=== PATIENT | male | born 1995 | race Caucasian/White ===

== ENCOUNTER 2017-02-03 12:09 | Emergency (ER) | payer OTHER ==
[~2017-02-03] VITALS: Ht 180.3 cm; Wt 72.7 kg
[~2017-02-03 12:09] MED LIST: ERGO500050 PO; RISP2TAB21 PO; ZONI100C6 PO
[2017-02-03 12:16] VITALS: BP 101/51; PULSE 102; RESP 14; O2SAT 96
--- NOTE | 2017-02-03 12:21 | ED.REPORT ---
HPI-Seizure Date of Service February 03, 2017 ED Provider: Johnathan Wing DO Pt is a 21 year old male with a hx of seizure disorder and polysubstance abuse presenting to the ED via EMS after 2 seizures today, the first one at 0830. The pt's mother reports that he was gurgling and having trouble breathing, then after the seizure was unresponsive so she called medics. His mother reports that she does not think that he has taken his seizure medication for the past few days, and that he does not "take the best care of himself". In the ambulance , the pt jumped up and tried to leave the ambulance while it was en route so he was given Ativan per medics. Nursing Notes Stated Complaint: SEIZURES Chief Complaint: Seizure Nursing Notes Reviewed: Yes Allergies: Coded Allergies: levetiracetam (Verified Allergy, Severe, Agitation, 03/28/16) She will becomes angry and suicidal Scheduled Ergocalciferol (Vitamin D2) (Drisdol) 50,000 Unit Capsule 50,000 UNIT PO Q7D Risperidone (Risperdal) 2 Mg Tablet 2 MG PO HS Zonisamide (Zonisamide) 100 Mg Capsule 100 MG PO BID Zonisamide (Zonisamide) 100 Mg Capsule 200 MG PO BID General Time Seen by Provider: 12:21 Chief Complaint Chief Complaint: Seizure, focal Hx Obtained From: Patient, Other family... (Mother), EMS Arrived By: Ambulance Onset Occurred: 1 - 4 hours ago Context of Onset: Ran out of medication Symptom Duration: Since onset Progression Since Onset: Constant Severity: Current: No pain currently Severity: Maximum: No pain Recent Healthcare: No recent doctor visit, No recent hospitalization Similar Sx Previous: Yes Past Medical History Past Medical History Notes: Neurologist: Dr. Jamila Gonzáles Past Medical History Seizure disorder, currently on Keppra. RX for Zonisamide filled 05/17. Shoulder dislocation Kidney failure, RABDO Past Surgical History denies Smoking History Current Every Day Smoker Social History Polysubstance abuse Alcohol Use: "Social" Drug Use: THC Occupation lives with gitlfriend Ambulatory Status Independent Review of Systems Unable to Obtain ROS Patient condition Musculoskeletal: Reports: Joint pain (Left shoulder) Neurologic: Reports: Confusion, Seizure Physical Exam Initial Vital Signs Vital Signs (First) Date Time Temp Pulse Resp B/P Pulse Ox O2 Delivery O2 Flow Rate FiO2 02/03/17 12:16 36.7 102 14 101/51 96 Room Air Initial VS: Reviewed Head / Eyes: Atraumatic, Normocephalic, PERRL ENT: Mucous membranes moist, Conjunctiva normal, No scleral icterus Abdomen / GI: Soft, Non-tender, No guarding, No rebound, No distention Extremities: Vascular intact, Neuro intact, No swelling, No tenderness Skin: Warm, Dry, No cyanosis Psychiatric: Mood/affect normal, Behavior normal, Normal thought content General/Constitutional: Awake, No acute distress Somnolent but arousable. Neck: Supple, No meningismus, Full range of motion, No swelling, Non-tender Respiratory / Chest: Breath sounds NL, Breath sounds = bilat, No respiratory distress, No rales, No rhonchi, No wheezing Cardiovascular: Heart rate NL, Regular rhythm, Heart sounds NL, Peripheral circulation NL Neurologic: Oriented X3, Speech NL, No motor deficits, No sensory deficits, CN II - XII intact, Reflexes equal bilat, Cerebellar NL Mental Status: Positive: Confused Inappropriate responses to questions. Interpretation & Diagnostics Lab Results Interpretation Result Diagram: 02/03/17 1240 02/03/17 1253 Test 02/03/17 12:40 02/03/17 12:53 White Blood Count 13.7th/mm3 (3.8-10.1) Red Blood Count 4.91mil/mm3 (4.40-5.80) Hemoglobin 15.4g/dL (13.8-17.2) Hematocrit 45.4% (41.0-50.0) Mean Corpuscular Volume 92.5fL (81-100) Mean Corpuscular Hemoglobin 31.4pg (27.0-35.0) Mean Corpuscular Hemoglobin Concent 33.9% (32.0-37.0) Red Cell Distribution Width 13.2% (12.3-15.4) Platelet Count 282bil/L (150-400) Neutrophils (%) (Auto) 73.7% (40-74) Lymphocytes (%) (Auto) 16.7% (14-46) Monocytes (%) (Auto) 7.1% (4-12) Eosinophils (%) (Auto) 1.7% (0-5) Basophils (%) (Auto) 0.4% (0-3) Sodium Level 136mEq/L (134-144) Potassium Level 3.7mEq/L (3.5-5.2) Chloride Level 101mEq/L (97-108) Carbon Dioxide Level 21mmol/L (18-29) Blood Urea Nitrogen 11mg/dL (6-20) Creatinine 0.94mg/dL (0.76-1.27) Estimat Glomerular Filtration Rate 107mL/min (>59) Glucose Level 130mg/dL (60-99) Calcium Level 9.6mg/dL (8.5-10.1) Total Bilirubin 0.5mg/dL (0.0-1.2) Aspartate Amino Transf (AST/SGOT) 20U/L (0-50) Alanine Aminotransferase (ALT/SGPT) 14U/L (0-44) Alkaline Phosphatase 79U/L (25-150) Total Protein 7.3g/dL (6.4-8.4) Albumin 4.5g/dL (3.4-5.0) Alcohols < 10mg/dL (0-10) Procedures Reduction Dislocated Shoulder Reduced anterior shoulder dislocation bedside. Diagnosed on examination. Time: 12:55 Procedure Performed by: ED physician Consent / Setup: Consent from patient Which Shoulder and Technique: Left shoulder Neurovascular: Intact pre-procedure, Intact post-procedure Post-Procedure / Complications: Reduced per examination, Procedure successful, Condition improved, Tolerated procedure well, Patient stable Re-Eval/Medical Decision Med Decision/Clinical Course Recurrent seizures today due to medication noncompliance, incidentally while in the ER he spontaneously dislocated his left shoulder which is identified clinically and is reducible the bedside without anesthesia or significant imaging. Patient's neurologically intact after this. He was given a dose of his zonisamide. He has remained seizure-free, his labs are unremarkable. He is return to normal functional baseline. His meds have been refilled and strict return and follow-up precautions are given. Re-Evaluation/Progress #1: Time of Eval: 12:32 Patient Status: Condition improved Re-Evaluation/Progress Note: Discussed additional past medical history and performed physical exam. His mother reports that his post-ictal behavior varies, but that right now he is acting a little more confused than usual. Re-Evaluation/Progress #2: Time of Eval: 12:53 Re-Evaluation/Progress Note: Pt now complains of left shoulder pain. Reduced shoulder. Re-Evaluation/Progress #3: Time of Eval: 13:40 Patient Status: Condition improved Re-Evaluation/Progress Note: Discussed lab results and medication dosage and plan for discharge. Pt understands and agrees. Pt now fully awake and responsive. Back at baseline. He states that he has not taken his seizure meds in 1 week. Counseled Regarding: Diagnosis, Lab results, Need for follow-up, When/why to return to ED Discharge & Departure Impression: Primary Impression: Breakthrough seizure Additional Impression: Shoulder dislocation, recurrent Laterality: left Qualified Code: M24.412 - Recurrent dislocation, left shoulder Disposition: Home Discharge Condition All VS Reviewed: Yes Condition: Improved Additional Instructions: Resume your seizure medication. Call your neurologist for follow-up. Return to ER as needed if worse. Referrals: Haseeb Chavez MD (PCP) Jamila Clifford MD Attestation Portions of this note were transcribed by Sharon Martin. I, Dr. Wing personally performed the history, physical exam and medical decision-making; I reviewed and confirmed the accuracy of the information in the transcribed note. Signed by: Jovany Guidry, 02/03/2017 at 1349. copies to: Jamila Clifford MD; Haseeb Chavez MD, Timothy S DO February 03, 2017 12:21 SHARON MARTIN February 03, 2017 12:27
[2017-02-03] MEDS ORDERED: 0.9% Sodium Chloride 1,000 ML IV ONE (12:36)
[2017-02-03 12:44] LABS: BASOPHILS % (AUTO) 0.4 % (0-3); EOSINOPHILS % (AUTO) 1.7 % (0-5); MONOCYTES % (AUTO) 7.1 % (4-12); Mean Corpuscular Hemoglobin 31.4 pg (27.0-35.0); Mean Corpuscular Volume 92.5 fL (81-100); NEUTROPHILS % (AUTO) 73.7 % (40-74); Platelet Count 282 bil/L (150-400)
[2017-02-03 13:17] VITALS: BP 124/68; PULSE 62; RESP 16; O2SAT 100
[2017-02-03] MEDS ORDERED: ZONI100C6 PO (13:44)
== END 2017-02-03 13:45 | disposition home or self-care (01) ==
LOC: EDUNIT# 12:09 → EDBD 12:09 → SED 12:09
DX: G40.909 Epilepsy, unspecified, not intractable, without status epilepticus (principal); M24.412 Recurrent dislocation, left shoulder; F19.20 Other psychoactive substance dependence, uncomplicated; M62.82 Rhabdomyolysis; F17.200 Nicotine dependence, unspecified, uncomplicated; Z88.8 Allergy status to other drugs, medicaments and biological substances
CPT/HCPCS: 23650; 36415; 80053; 85025; 99285; G0480

== ENCOUNTER 2017-02-20 20:06 | Emergency (ER) | payer OTHER ==
[~2017-02-20] VITALS: Ht 182.9 cm; Wt 72.0 kg
[2017-02-20 20:16] VITALS: BP 137/79; RESP 16; O2SAT 99
--- NOTE | 2017-02-20 23:25 | ED.REPORT ---
HPI-General Illness Date of Service February 20, 2017 ED Provider: Mauri Patterson MD Pt is a 21 y.o. male with a hx of seizure disorder and kidney failure secondary to rhabdomyolysis who presents to the ED from c/o left ear pain onset 3 days ago. Pt states that he "touched it when he shouldn't have" and has been "picking " at the area behind his left ear. Pt reports associated redness and jaw pain. He denies itching. Pt was seen at and they recommended he come into the ED for further imaging and abx. Nursing Notes Stated Complaint: INFECTION BEHIND EAR Chief Complaint: ENT & Mouth Nursing Notes Reviewed: Yes Allergies: Coded Allergies: levetiracetam (Verified Allergy, Severe, Agitation, 02/20/17) She will becomes angry and suicidal Scheduled Cephalexin (Keflex) 500 Mg Capsule 500 MG PO QID Clindamycin (Clindamycin) 300 Mg Capsule 300 MG PO QID Ergocalciferol (Vitamin D2) (Drisdol) 50,000 Unit Capsule 50,000 UNIT PO Q7D Risperidone (Risperdal) 2 Mg Tablet 2 MG PO HS Zonisamide (Zonisamide) 100 Mg Capsule 100 MG PO BID Zonisamide (Zonisamide) 100 Mg Capsule 200 MG PO BID General Time Seen by MD: 23:25 Chief Complaint Ear pain Hx Obtained From: Patient Arrived By: Walk-in Sudden in Onset?: Yes Onset Occurred: 3 days ago Location: : Ear left Quality: Painful Radiation: : Jaw Severity: Current: Moderate Similar Sx Previous: No Past Medical History Past Medical History Notes: Neurologist: Dr. Jamila Gonzáles Past Medical History Seizure disorder, currently on Keppra. RX for Zonisamide filled 05/17. Shoulder dislocation Kidney failure, Rhabdomyolysis Past Surgical History denies Smoking History Current Every Day Smoker Social History Polysubstance abuse Alcohol Use: "Social" Drug Use: THC Occupation lives with gitlfriend Ambulatory Status Independent Review of Systems Full Review of Systems Ears / Nose / Throat: Reports: Earache left (pain), Mouth pain (jaw) Skin: Reports Rash (behind left ear) Allergy / Immune: Denies: Itching Complete sys rev & neg: except as marked. Physical Exam Vital Signs Vital Signs Date Time Temp Pulse Resp B/P Pulse Ox O2 Delivery O2 Flow Rate FiO2 5/20/17 05:34 36.7 63 14 114/63 99 Room Air 02/21/17 00:25 36.9 80 18 118/64 99 Room Air 02/20/17 20:16 37.2 90 16 137/79 99 Room Air Initial VS: Reviewed Respiratory: Breath sounds normal, No respiratory distress Cardiovascular: Regular rate & rhythm, Intact distal pulses Abdomen / GI: No distention Extremities: Vascular intact, Neuro intact Skin: Warm, Dry, No cyanosis Neurologic: Alert, Oriented, Nonfocal Psychiatric: Mood/affect normal, Behavior normal, Normal thought content General/Constitutional: Awake, Alert, No acute distress, Well appearing, Well developed, Well hydrated, Well nourished, Not toxic appearing Head / Eyes: Atraumatic, Normocephalic, PERRL, EOMI ENT: Atraumatic, Airway patent, Mucous membranes moist Left Ear / Mastoid: Positive: Mastoid area red, Mastoid area tender Neck: Atraumatic, No adenopathy Interpretation & Diagnostics Lab Results Interpretation Result Diagram: 02/20/174 02/20/17 2354 Test 02/20/17 23:54 White Blood Count 14.5th/mm3 (3.8-10.1) Red Blood Count 4.81mil/mm3 (4.40-5.80) Hemoglobin 15.2g/dL (13.8-17.2) Hematocrit 43.8% (41.0-50.0) Mean Corpuscular Volume 91.1fL (81-100) Mean Corpuscular Hemoglobin 31.6pg (27.0-35.0) Mean Corpuscular Hemoglobin Concent 34.7% (32.0-37.0) Red Cell Distribution Width 13.4% (12.3-15.4) Platelet Count 281bil/L (150-400) Neutrophils (%) (Auto) 76.3% (40-74) Lymphocytes (%) (Auto) 15.5% (14-46) Monocytes (%) (Auto) 6.8% (4-12) Eosinophils (%) (Auto) 0.8% (0-5) Basophils (%) (Auto) 0.3% (0-3) Sodium Level 137mEq/L (134-144) Potassium Level 3.5mEq/L (3.5-5.2) Chloride Level 99mEq/L (97-108) Carbon Dioxide Level 21mmol/L (18-29) Blood Urea Nitrogen 17mg/dL (6-20) Creatinine 0.98mg/dL (0.76-1.27) Estimat Glomerular Filtration Rate 102mL/min (>59) Glucose Level 84mg/dL (60-99) Calcium Level 9.5mg/dL (8.5-10.1) Magnesium Level 2.0mg/dL (1.6-2.6) Total Bilirubin 0.5mg/dL (0.0-1.2) Aspartate Amino Transf (AST/SGOT) 18U/L (0-50) Alanine Aminotransferase (ALT/SGPT) 13U/L (0-44) Alkaline Phosphatase 98U/L (25-150) Troponin T 0.010ug/L (0.0-0.011) Total Protein 8.2g/dL (6.4-8.4) Albumin 4.9g/dL (3.4-5.0) Procalcitonin 0.04ng/mL (0.00-0.08) Hold Scott Top Tube Received (Received) CT Head Interpretation CT temporal bone Impression: Edema of the periauricular soft tissues of the left ear noted. No discrete loculated fluid collection. Otherwise, unremarkable CT study of the temporal bones. This report was transmitted to the emergency room at 02/21/2017 - 2:57:06 AM PDT. Interpretation / Wet Read by: Interpret - Radiologist Re-Eval/Medical Decision Med Decision/Clinical Course 21-year-old presents with worsening redness and swelling over the mastoid prominence of the left side, involving the back of the ear and causing some swelling and pain limiting his jaw motion. There is no drainable abscess there. CT was done to exclude osteomyelitis and mastoiditis, and this was negative. The infection appears to be confined to the soft tissue superficial to the bone. Initial plan was IV antibiotics but he was given Levaquin on the possibility that this was mastoiditis. Ultimately, Keflex and Clinda for the possibility of MRSA as well as routine skin bacteria was provided. He is to follow up with PCP. Prompt return if worse. Source of Hx: Old records Time of Eval: 04:42 Re-Evaluation/Progress Note: Pt rechecked. Discussed imaging results and plan for discharge, pt understands and agrees with plan. Counseled Regarding: Diagnosis, Lab results, Need for follow-up, When/why to return to ED Discharge & Departure Shift Change Sign-Out Response to Therapy: Improved Primary Impression: Otitis externa Additional Impression: Cellulitis Disposition: Home Discharge Condition All VS Reviewed: Yes Condition: Improved Additional Instructions: We do not find evidence of mastoiditis or bone infection underlying the infected area. Begin Keflex four times daily. Begin clindamycin four times daily. Follow-up with your doctor in the office this week. Return promptly if worsening despite treatment. Referrals: Haseeb Chavez MD (PCP) Scribe Attestation Portions of this note were transcribed by Kvng Alas. I, Dr. Patterson personally performed the history, physical exam and medical decision-making; I reviewed and confirmed the accuracy of the information in the transcribed note. Signed by: Jovany Meeks, 02/21/17 and 0500. copies to: Haseeb Chavez MD, Christopher W MD February 20, 2017 23:25 KVNG ALAS February 20, 2017 23:32 Benigno Flores February 21, 2017 03:03
[2017-02-20] MEDS ORDERED: 0.9% Sodium Chloride 1,000 ML IV ONE (23:31)
[2017-02-21] LABS: BASOPHILS % (AUTO) 0.3 % (0-3); EOSINOPHILS % (AUTO) 0.8 % (0-5); MONOCYTES % (AUTO) 6.8 % (4-12); Mean Corpuscular Hemoglobin 31.6 pg (27.0-35.0); Mean Corpuscular Volume 91.1 fL (81-100); NEUTROPHILS % (AUTO) 76.3 % (40-74); Platelet Count 281 bil/L (150-400)
[2017-02-21 00:22] LABS: TROPONIN T 0.01 ug/L (0.0-0.011)
[2017-02-21 00:25] VITALS: BP 118/64; PULSE 80; RESP 18; O2SAT 99
[2017-02-21] MEDS ORDERED: levoFLOXacin 750 mg Tablet PO ONE (03:15)
[2017-02-21] MEDS ORDERED: CEPH-512 PO (04:52)
[2017-02-21] MEDS ORDERED: CLIN-78 PO (04:52)
[2017-02-21 05:34] VITALS: BP 114/63; PULSE 63; RESP 14; O2SAT 99
--- NOTE | 2017-02-21 08:53 | DRSVH ---
PROCEDURE: CT INTERNAL AUDITORY CANAL WITHOUT CONTRAST INDICATIONS: mastoiditis left COMPARISON: None. TECHNIQUE: Noncontrast 0.6 mm thick direct axial and coronal sections acquired through each temporal bone separa tely. For radiation dose reduction, the following was used: automated exposure control, adjustment of mA and/or kV according to patient size. FINDINGS: Image quality: Excellent. RIGHT: External auditory canal: There is mild edema of the periarticular soft tissues as well as distal aspe ct of the external auditory canal. Middle ear: The middle ear structures, including the ossicles and tympanic membrane, appear normal. No abnormal fluid or soft tissue density. Inner ear: Inner ear is normally formed and appears unremarkable. Facial nerve appears normal throu ghout is course. Mastoids: Mastoid air cells are clear. LEFT: External auditory canal: Canal has a normal appearance. Middle ear: The middle ear structures, including the ossicles and tympanic membrane, appear normal. No abnormal fluid or soft tissue density. Inner ear: Inner ear is normally formed and appears unremarkable. Facial nerve appears normal throu ghout its course. Mastoids: Mastoid air cells are clear. MISCELLANEOUS: Visualized surrounding bones appear unremarkable. Visualized intracranial structures , including the cerebellopontine angle cisterns, appear normal. IMPRESSION: 1. Mild edema of the distal external auditory canal and periarticular soft tissues are normal left. N o focal fluid collection is identified. Dictated by: Krupa Mari M.D. on 02/21/2017 at 8:50 Approved by: Krupa Mari M.D. on 02/21/2017 at 8:52
== END 2017-02-21 05:35 | disposition home or self-care (01) ==
LOC: SED 20:06
DX: H60.92 Unspecified otitis externa, left ear (principal); H60.12 Cellulitis of left external ear; F17.200 Nicotine dependence, unspecified, uncomplicated; Z88.8 Allergy status to other drugs, medicaments and biological substances
CPT/HCPCS: 36415; 70480; 80053; 83735; 84145; 84484; 85025; 87040; 96360; 96372; 99285; J1885; J7030

== ENCOUNTER 2017-03-27 12:47 | Emergency (ER) | payer OTHER ==
[~2017-03-27 12:47] MED LIST changes: +CEPH-512 PO; +CLIN-78 PO
[2017-03-27] MEDS ORDERED: Ketamine 100 mg/mL 5 mL Inj ONE (12:51)
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
[2017-03-27] MEDS ORDERED: 0.9% Sodium Chloride 1,000 ML IV ONE (13:08)
[2017-03-27 13:16] VITALS: BP 164/83; PULSE 131; RESP 12; O2SAT 95
[2017-03-27 13:20] LABS: BASOPHILS % (AUTO) 0.5 % (0-3)
[2017-03-27 13:24] LABS: INR 1.01 ratio
[2017-03-27 13:25] LABS: EOSINOPHILS % (AUTO) 3.6 % (0-5); MONOCYTES % (AUTO) 7.7 % (4-12); Mean Corpuscular Hemoglobin 31.1 pg (27.0-35.0); Mean Corpuscular Volume 94.4 fL (81-100); Platelet Count 256 bil/L (150-400)
[2017-03-27 13:27] VITALS: BP 149/87; PULSE 113; RESP 22; O2SAT 98
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
[2017-03-27 13:42] LABS: TROPONIN T < 0.010 ug/L (0.0-0.011)
[2017-03-27 13:44] LABS: Lipase 24 U/L (13-60)
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
[2017-03-27] MEDS ORDERED: Ondansetron 2 mg/mL 2 mL Inj IVPUSH ONE (14:50)
[2017-03-27 14:58] VITALS: BP 124/97; PULSE 85; RESP 20; O2SAT 95
[2017-03-27 16:22] VITALS: BP 120/89; PULSE 94; RESP 20; O2SAT 96
== END 2017-03-27 16:23 | disposition home or self-care (01) ==
LOC: SED 12:47 → EDBD 12:47 → SED 16:23
DX: R56.9 Unspecified convulsions (principal); V47.5XXA Car driver injured in collision with fixed or stationary object in traffic accident, initial encounter; Y93.89 Activity, other specified; Y92.410 Unspecified street and highway as the place of occurrence of the external cause; Y99.8 Other external cause status; F17.200 Nicotine dependence, unspecified, uncomplicated; Z88.8 Allergy status to other drugs, medicaments and biological substances
CPT/HCPCS: 36415; 70450; 71010; 71260; 72125; 72170; 73030; 74177; 80048; 80053; 82375; 82550; 82803; 83605; 83690; 83735; 84484; 85014; 85018; 85025; 85610; 85730; 86850; 93005; 96361; 96374; 96375; 99285; G0480; J2405; J7030; Q9967

== ENCOUNTER 2017-06-16 14:22 | Emergency (ER) | payer OTHER ==
[2017-06-16] MEDS ORDERED: MGPE IV ONE (14:30)
[2017-06-16] MEDS ORDERED: FOSPHENYTOIN IV ONE (14:30)
[2017-06-16] MEDS ORDERED: SODIUM CHLORIDE 0.9% IV ONE (14:30)
[2017-06-16 14:34] VITALS: BP 134/56; PULSE 120; RESP 23; O2SAT 99
[2017-06-16] MEDS ORDERED: 0.9% Sodium Chloride 1,000 ML IV ONE (14:36)
--- NOTE | 2017-06-16 14:43 | ED.REPORT ---
HPI-Seizure Date of Service Jun 16, 2017 ED Provider: Johnathan Wing DO Patient is a 21 year old male with a hx of seizures currently on zonisamide, EtOH use, and polysubstance abuse who presents to the ED s/p having multiple seizures this morning. While pt was in the waiting room, he had another seizure for which a code blue was called. Per mother, pt was found on his bedroom floor seizing this morning. She does not know if he hit his head. Since, he has had multiple smaller seizures. Mother reports that he has been drinking "quite a lot " lately. Nursing Notes Stated Complaint: seizure Chief Complaint: Seizure Nursing Notes Reviewed: Yes Allergies: Coded Allergies: levetiracetam (Verified Allergy, Severe, Agitation, 02/20/17) She will becomes angry and suicidal Scheduled Cephalexin (Keflex) 500 Mg Capsule 500 MG PO QID Clindamycin (Clindamycin) 300 Mg Capsule 300 MG PO QID Ergocalciferol (Vitamin D2) (Drisdol) 50,000 Unit Capsule 50,000 UNIT PO Q7D Risperidone (Risperdal) 2 Mg Tablet 2 MG PO HS Zonisamide (Zonisamide) 100 Mg Capsule 100 MG PO BID Zonisamide (Zonisamide) 100 Mg Capsule 200 MG PO BID General Time Seen by Provider: 14:21 Chief Complaint Chief Complaint: Seizure, generalized Hx Obtained From: Other family... (Mother) Unable to Obtain Hx: Patient condition, Mental status Arrived By: Walk-in Onset Occurred: 5 - 8 hours ago Symptom Duration: Intermittent Immunizations: Unknown Recent Healthcare: Recent doctor visit Similar Sx Previous: Yes Past Medical History Past Medical History Notes: Neurologist: Dr. Jamila Gonzáles Past Medical History Seizure disorder, currently on zonisamide Shoulder dislocation Kidney failure, Rhabdomyolysis Past Surgical History denies Family History Noncontributory Smoking History Current Every Day Smoker Social History Polysubstance abuse Lives with mother Alcohol Use: 1-3 per day Drug Use: THC Other Social History: Local resident Ambulatory Status Independent Review of Systems Unable to Obtain ROS Patient condition, Mental status Physical Exam Initial Vital Signs Vital Signs (First) Date Time Temp Pulse Resp B/P Pulse Ox O2 Delivery O2 Flow Rate FiO2 06/16/17 14:34 120 23 134/56 99 Non-Rebreather Initial VS: Reviewed Alertness: Positive: Disoriented Appearance / Presentation: Positive: Pale witnessed actively seizing, now post-ictal, moving around Neck: Full range of motion Respiratory / Chest: Atraumatic Cardiovascular: Peripheral circulation NL Mental Status: Positive: Disoriented to person, Disoriented to place, Disoriented to time Post-ictal but moving around Head / Eyes: Normocephalic Pupils 4mm and reactive Upper Extremity / MS: Atraumatic Lower Extremity / Pelvis / MS: Atraumatic Color / Condition: Positive: Diaphoresis present Interpretation & Diagnostics Lab Results Interpretation Result Diagram: 06/16/17 1420 Test 06/16/17 14:20 Sodium Level 145mEq/L (134-144) Potassium Level 4.3mEq/L (3.5-5.2) Chloride Level 98mEq/L (97-108) Carbon Dioxide Level 11mmol/L (18-29) Blood Urea Nitrogen 18mg/dL (6-20) Creatinine 1.42mg/dL (0.76-1.27) Estimat Glomerular Filtration Rate 66mL/min (>59) Glucose Level 129mg/dL (60-99) Calcium Level 11.0mg/dL (8.5-10.1) Total Bilirubin 0.5mg/dL (0.0-1.2) Aspartate Amino Transf (AST/SGOT) 37U/L (0-50) Alanine Aminotransferase (ALT/SGPT) 20U/L (0-44) Alkaline Phosphatase 96U/L (25-150) Total Protein 9.2g/dL (6.4-8.4) Albumin 5.4g/dL (3.4-5.0) Alcohols < 10mg/dL (0-10) Lab Results Interpretation: Urine tox positive for THC Discharge & Departure Shift Change Sign-Out Patient Care Transferred: Yes Discussed Complaint(s): Yes Laboratory Evaluation: Ordered, not yet done Imaging Studies: Ordered, not yet done Additonal Information: Transfer of care to Dr. Wood at 1500 Impression: Primary Impression: Seizure Discharge Condition All VS Reviewed: Yes Condition: Stable Referrals: Haseeb Chavez MD (PCP) Care Transferred to: Dr. Wood Care Transferred at: 15:00 Scribe Attestation Portions of this note were transcribed by Mattie Thakkar. IDr. Wing personally performed the history, physical exam and medical decision-making; I reviewed and confirmed the accuracy of the information in the transcribed note. Signed by: Jovany Lim, 06/16/17 copies to: Haseeb Chavez MD, Timothy S DO Jun 16, 2017 14:43 MATTIE THAKKAR Jun 16, 2017 14:51
[2017-06-16 17:00] LABS: BASOPHILS % (AUTO) 0.1 % (0-3); EOSINOPHILS % (AUTO) 0.1 % (0-5); MONOCYTES % (AUTO) 11.4 % (4-12); Mean Corpuscular Hemoglobin 31.5 pg (27.0-35.0); Mean Corpuscular Volume 94.7 fL (81-100); NEUTROPHILS % (AUTO) 78.7 % (40-74); Platelet Count 214 bil/L (150-400)
[2017-06-16 18:09] VITALS: BP 114/56; PULSE 90; O2SAT 96
--- NOTE | 2017-06-16 18:42 | DRSVH ---
PROCEDURE: CT BRAIN WITHOUT CONTRAST ([id number]) INDICATIONS: aloc, seizure TECHNIQUE: Noncontrast 4.5 mm thick angled axial sections acquired from the foramen magnum to the vertex, with c oronal reformats. COMPARISON: None. FINDINGS: Image quality: Study is limited by patient motion artifact. CSF spaces: Basal cisterns are patent. No extra-axial fluid collections. Ventricles are normal in size and shape. Brain: No midline shift. No intracranial masses or hemorrhage. Hernandez-white matter interface is norm al. Skull and face: Calvarium and visualized facial bones are intact, without suspicious lesions. Sinuses: Visualized sinuses and mastoids are clear. IMPRESSION: Limited study. No acute intracranial findings. Dictated by: Ade Mora M.D. on 06/16/2017 at 18:39 Approved by: Ade Mora M.D. on 06/16/2017 at 18:40
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
[2017-06-16 20:31] VITALS: BP 131/76; PULSE 92; O2SAT 100
== END 2017-06-16 20:32 ==
LOC: SED 14:22
DX: R56.9 Unspecified convulsions (principal); F17.200 Nicotine dependence, unspecified, uncomplicated; F12.10 Cannabis abuse, uncomplicated; Z87.448 Personal history of other diseases of urinary system; Z88.8 Allergy status to other drugs, medicaments and biological substances
CPT/HCPCS: 36415; 51701; 70450; 71010; 80053; 85025; 93005; 94799; 96361; 96365; 96372; 96375; 99285; G0480; J2060; J2250; J7030; Q2009